=== PATIENT | male | born 1995 | race Caucasian/White ===

== ENCOUNTER 2019-07-25 15:02 | Emergency (ER) | payer OTHER ==
[2019-07-25 15:09] VITALS: BP 138/87; PULSE 72; TEMP 97.8; BMI 32.1
[2019-07-25] MEDS ORDERED: DIPHTH,PERTUSS(ACELL),TET 0.5 ML DISP.SYRIN IM ONE ×2 (15:29→15:33)
[2019-07-25] MEDS ORDERED: IBUPROFEN 600 MG TABLET (FP) PO ONE ×2 (16:44→16:50)
--- NOTE | 2019-07-25 16:49 | PDOC ---
History of Present Illness - General Chief Complaint: Injury Stated Complaint: INJURY Time Seen by Provider: 07/25/19 15:16 History Source: Patient Exam Limitations: No Limitations Past History - Travel Traveled outside of the country in the last 30 days: No Close contact w/someone who was outside of country & ill: No - Past Medical History Allergies/Adverse Reactions: Allergies Allergy/AdvReac Type Severity Reaction Status Date / Time No Known Allergies Allergy Verified 07/25/19 15:09 Home Medications: Ambulatory Orders Cephalexin Monohydrate [Keflex -] 500 mg PO BID #14 capsule 07/25/19 Ibuprofen 600 mg PO Q6H #30 tablet 07/25/19 Sulfamethoxazole/Trimethoprim [Bactrim Ds -] 1 tab PO BID #14 tablet 07/25/19 COPD: No - Immunization History Immunization Up to Date: No - Psycho Social/Smoking Cessation Hx Smoking History: Never smoked Review of Systems - Review of Systems Able to Perform ROS?: Yes Comments:: 07/25/19 16:56 CONSTITUTIONAL: Absent: fever, chills, diaphoresis, generalized weakness, malaise, loss of appetite MUSCULOSKELETAL: Absent: myalgia, arthralgia, joint swelling SKIN: Present: laceration Absent: rash, itching, pallor NEUROLOGIC: Absent: headache, focal weakness or paresthesias, dizziness, unsteady gait, seizure, mental status changes, bladder or bowel incontinence PSYCHIATRIC: Absent: anxiety, depression, suicidal or homicidal ideation, hallucinations. Is the patient limited [place] proficient: No *Physical Exam - Vital Signs Last Vital Signs Temp Pulse Resp BP Pulse Ox 97.8 F 72 18 138/87 99 07/25/19 15:04 07/25/19 15:04 07/25/19 15:04 07/25/19 15:04 07/25/19 15:04 - Physical Exam 07/25/19 16:58 GENERAL: The patient is awake, alert, and fully oriented, in no acute distress. HEAD: Normal with no signs of trauma. EYES: Pupils equal, round and reactive to light, extraocular movements intact, sclera anicteric, conjunctiva clear. EXTREMITIES: Normal range of motion, no edema. NEUROLOGICAL: Normal speech, normal gait. PSYCH: Normal mood, normal affect. SKIN: Distal nailbed laceration/avulsion laceration approximately 0.5 cm. Actively bleeding. PMS intact. Warm, Dry, normal turgor, no rashes or lesions noted. Procedures - Laceration/Wound Repair Left Distal 1st digit Wound Length: to 2.5 cm Wound Explored: clean, no foreign body present Wound's Depth, Shape: superficial, linear Irrigated w/ Saline: Yes Betadine Prep: No (alcohol prep) Anesthesia: 1% Lidocaine Amount of Anesthetic (ccs): 5 Wound Repaired With: Sutures Suture Size/Type: 4:0, proline Number of Sutures: 3 (simple interrupted through the L1st nail bed) Layer Closure: No Sterile Dressing Applied: Yes ED Treatment Course - RADIOLOGY Radiology Studies Ordered: Category Date Time Status HAND- LEFT [RAD] Stat Radiology 07/25/19 15:39 Taken - Medications Given in the ED: ED Medications Discontinued Medications Generic Name Dose Route Start Last Admin Trade Name Freq PRN Reason Stop Dose Admin Diphtheria/Tetanus/Acell Pertussis 0.5 ml 07/25/19 15:29 07/25/19 15:38 Boostrix - IM 07/25/19 15:30 0.5 ml .ONCE ONE Administration Medical Decision Making - Medical Decision Making 07/25/19 16:59 The patient is a 24-year-old male no past medical history who presents to the ER with a left finger nailbed laceration. He states he was at work chopping chicken when he cut the end of his finger off. He does not member the date of his last tetanus shot. He states that it was bleeding for more than 20-minute so he came to the ER for evaluation. He states he is able to move his finger. Denies numbness and tingling weakness the affected extremity. Pt is R hand dominant. A/P: Nailbed avulsion/laceration On exam the distal nailbed is missing of the left first finger. There is a visible nailbed laceration after tourniquet is placed for bleeding control. X-ray is negative for fractures Wound was cleaned under high pressure, bleeding continued. Digital block placed 3 simple interrupted sutures were placed with absorbable suture to help with bleeding control. Mild oozing present after sutures placed, given the avulsion injury. Bleeding well controlled. Nonstick dressing placed and patient told to follow-up in 2 days for wound check. Given open laceration, patient placed on antibiotics to prevent infection Discharge home I discussed the physical exam findings, ancillary test results and final diagnoses with the patient. I answered all of the patient's questions. The patient was satisfied with the care received and felt comfortable with the discharge plan and treatment plan. The Patient agrees to follow up with the primary care physician/specialist within 24-72 hours. Return precautions were given. Discharge - Discharge Information Problems reviewed: Yes Clinical Impression/Diagnosis: Avulsion, finger tip Qualifiers: Encounter type: initial encounter Qualified Code(s): S61.209A - Unspecified open wound of unspecified finger without damage to nail, initial encounter Condition: Stable Disposition: HOME - Admission No - Additional Discharge Information Prescriptions: Cephalexin Monohydrate [Keflex -] 500 mg PO BID #14 capsule Ibuprofen 600 mg PO Q6H #30 tablet Sulfamethoxazole/Trimethoprim [Bactrim Ds -] 1 tab PO BID #14 tablet - Follow up/Referral Referrals: Tamara Holloway MD [Primary Care Provider] - - Patient Discharge Instructions Patient Printed Discharge Instructions: DI for Laceration Repair -- Simple Additional Instructions: You were evaluated for your laceration today Please return in 2 days (07/27/19) for a wound check Take the antibiotics as directed. Your x-ray is negative for fracture. You may take Motrin 600mg every 6 hours as needed for pain not to exceed 3, 000mg a day The wound will continue to ooze. You can put pressure on the wound to help stop the bleeding. Return to the ER sooner for worsening pain, fever, purulent discharge or if you have any changes in your symptoms - Post Discharge Activity Work/Back to School Note: Back to Work
== END 2019-07-25 16:56 | disposition home or self-care (01) ==
LOC: JERFT 15:02
PROC: 3E0234Z Introduction of Serum, Toxoid and Vaccine into Muscle, Percutaneous Approach (ICD-10-PCS; principal; 2019-07-25)
PROC: 0HQGXZZ Repair Left Hand Skin, External Approach (ICD-10-PCS; 2019-07-25)
DX: S61.102A Unspecified open wound of left thumb with damage to nail, initial encounter (principal); W26.0XXA Contact with knife, initial encounter; Y93.G1 Activity, food preparation and clean up; Y92.512 Supermarket, store or market as the place of occurrence of the external cause; Y99.0 Civilian activity done for income or pay
CPT/HCPCS: 73130-TC-LT-FY; 90715; 99281-25

== ENCOUNTER 2019-07-27 10:29 | Emergency (ER) | payer OTHER ==
[2019-07-27 10:55] VITALS: BP 109/60; PULSE 65; TEMP 98.1; BMI 32.1
--- NOTE | 2019-07-27 12:10 | PDOC ---
Suture Removal/Wound Check HPI - History of Present Illness Chief Complaint: Wound Stated Complaint: FOLLOW UP VISIT (THUMB) Time Seen by Provider: 07/27/19 10:56 History Source: Yes: Patient Exam Limitations: Yes: No Limitations Treated at: [facility] ED - Previous ED Treatment Type of procedure performed on last visit: Yes: Laceration Repair Tetanus Immunization: Yes: Up to Date Past History - Travel Traveled outside of the country in the last 30 days: No Close contact w/someone who was outside of country & ill: No - Past Medical History Allergies/Adverse Reactions: Allergies Allergy/AdvReac Type Severity Reaction Status Date / Time No Known Allergies Allergy Verified 07/27/19 10:55 Home Medications: Ambulatory Orders Cephalexin Monohydrate [Keflex -] 500 mg PO BID #14 capsule 07/25/19 Ibuprofen 600 mg PO Q6H #30 tablet 07/25/19 Sulfamethoxazole/Trimethoprim [Bactrim Ds -] 1 tab PO BID #14 tablet 07/25/19 COPD: No - Immunization History Immunization Up to Date: No - Psycho Social/Smoking Cessation Hx Smoking History: Never smoked Suture Removal/Wound Check PE - Physical Exam Laceration/Wound Check Symptoms: reports: Improved. denies: Discharge, Bleeding Current Severity Level: None Maximum Severity Level: None Location of Laceration/Wound: left: Finger *Review of Systems - Review of Systems Able to Perform ROS?: Yes Constitutional: No: Fever, Weakness *Physical Exam - Vital Signs Last Vital Signs Temp Pulse Resp BP Pulse Ox 98.1 F 65 18 109/60 99 07/27/19 10:54 07/27/19 10:54 07/27/19 10:54 07/27/19 10:54 07/27/19 10:54 - Physical Exam General Appearance: Yes: Nourished, Appropriately Dressed. No: Apparent Distress Extremity: positive: Normal Capillary Refill Integumentary: positive: Normal Color, Dry, Warm, Other (healing avulsion of the L 1st digit, no active bleeding. No surrounding erythema. No purulent drainage.) Medical Decision Making - Medical Decision Making 07/27/19 12:08 The patient is a 24-year-old male who returns the ER for a wound check of his left first digit after having an avulsion injury 2 days ago. His fevers, purulent drainage. He is taking the antibiotics as prescribed A/P: Wound check On exam healing avulsion injury of the left thumb. No bleeding active at this time. No purulent drainage or evidence of cellulitis. Skin is starting to form. Sutures are intact. Advised patient if the sutures do not absorb to return to the ER to have them removed on Friday, 1 week after the initial injury Discharge home I discussed the physical exam findings, ancillary test results and final diagnoses with the patient. I answered all of the patient's questions. The patient was satisfied with the care received and felt comfortable with the discharge plan and treatment plan. The Patient agrees to follow up with the primary care physician/specialist within 24-72 hours. Return precautions were given. Discharge - Discharge Information Problems reviewed: Yes Clinical Impression/Diagnosis: Visit for wound check Condition: Stable Disposition: HOME - Admission No - Follow up/Referral Referrals: Rachid Camejo MD [Primary Care Provider] - - Patient Discharge Instructions Patient Printed Discharge Instructions: DI for Nail Avulsion Injury Additional Instructions: Your wound is healing well. Please continue to change the dressing every day. Take the antibiotics as previously directed. If the stitches do not absorb by Friday please return to the ER to have them removed Return to the ER for any new or worsening symptoms including fever, purulent drainage, redness around the thumb or if you have any changes in your symptoms - Post Discharge Activity Work/Back to School Note: Back to Work
== END 2019-07-27 12:16 | disposition home or self-care (01) ==
LOC: JERFT 10:29
DX: Z48.817 Encounter for surgical aftercare following surgery on the skin and subcutaneous tissue (principal)
CPT/HCPCS: 99281-25

== ENCOUNTER 2019-08-02 22:18 | Emergency (ER) | payer OTHER ==
[2019-08-02 22:29] VITALS: BP 122/68; PULSE 90; TEMP 98.3; BMI 30.7
--- NOTE | 2019-08-02 23:40 | PDOC ---
Suture Removal/Wound Check HPI - History of Present Illness Chief Complaint: Suture/Staple Removal(Here) Stated Complaint: STITCH REMOVAL Time Seen by Provider: 08/02/19 23:33 History Source: Yes: Patient, Old Records Exam Limitations: Yes: No Limitations Treated at: [facility] Date of Last ED visit: 07/25/19 - Previous ED Treatment Type of procedure performed on last visit: Yes: Laceration Repair Tetanus Immunization: Yes: Given at last ED visit Antibiotics Prescribed: Yes Past History - Past Medical History Allergies/Adverse Reactions: Allergies Allergy/AdvReac Type Severity Reaction Status Date / Time No Known Allergies Allergy Verified 08/02/19 22:26 Home Medications: Ambulatory Orders Cephalexin Monohydrate [Keflex -] 500 mg PO BID #14 capsule 07/25/19 Ibuprofen 600 mg PO Q6H #30 tablet 07/25/19 Sulfamethoxazole/Trimethoprim [Bactrim Ds -] 1 tab PO BID #14 tablet 07/25/19 COPD: No - Immunization History Immunization Up to Date: No - Psycho Social/Smoking Cessation Hx Smoking History: Never smoked Suture Removal/Wound Check PE - Physical Exam Laceration/Wound Check Symptoms: reports: None Current Severity Level: None Maximum Severity Level: None Pain Localization: None Location of Laceration/Wound: left: Finger (Thumb) Pain Radiation: None *Review of Systems - Review of Systems Able to Perform ROS?: Yes All Other Systems: Reviewed and Negative *Physical Exam - Vital Signs Last Vital Signs Temp Pulse Resp BP Pulse Ox 98.3 F 90 18 122/68 97 08/02/19 22:27 08/02/19 22:27 08/02/19 22:27 08/02/19 22:27 08/02/19 22:27 - Physical Exam General Appearance: Yes: Appropriately Dressed. No: Apparent Distress Extremity: positive: Other (Laceration well approximated. No signs and symptoms of infection noted. No discharge or drainage present. [address] Medical Decision Making - Medical Decision Making 08/02/19 23:56 A/P: 24-year-old male for suture removal to the left thumb No signs and symptoms of infection. Wound is well approximated and well-healed. 3 sutures removed without incident. Patient tolerated well Discharge home Discharge - Discharge Information Problems reviewed: Yes Clinical Impression/Diagnosis: Visit for suture removal Condition: Stable Disposition: HOME - Admission No - Follow up/Referral Referrals: Rachid Camejo MD [Primary Care Provider] - - Patient Discharge Instructions Patient Printed Discharge Instructions: DI for Suture Removal Additional Instructions: Rest, allow completion of healing May continue using bacitracin ointment until scabs are completely resolved Keep wound covered and out of the sun for at least one year as scar tissue will pear picker and absorbable more sunlight causing a darker discoloration May use vitamin E, aloe, or other oils recommended for skin and scar healing - Post Discharge Activity
--- NOTE | 2019-08-02 23:41 | PDOC ---
*Physical Exam - Vital Signs Last Vital Signs Temp Pulse Resp BP Pulse Ox 98.3 F 90 18 122/68 97 08/02/19 22:27 08/02/19 22:27 08/02/19 22:27 08/02/19 22:27 08/02/19 22:27 Medical Decision Making - Medical Decision Making 08/02/19 23:41 Patient seen by the advanced practice provider under my direct supervision. Ancillary testing reviewed as necessary. I agree with plan as outlined by the advanced practice provider. Discharge - Discharge Information Problems reviewed: Yes Clinical Impression/Diagnosis: Visit for suture removal Condition: Stable Disposition: HOME - Follow up/Referral Referrals: Rachid Camejo MD [Primary Care Provider] - - Patient Discharge Instructions Patient Printed Discharge Instructions: DI for Suture Removal Additional Instructions: Rest, allow completion of healing May continue using bacitracin ointment until scabs are completely resolved Keep wound covered and out of the sun for at least one year as scar tissue will ultrasound supervisor and absorbable more sunlight causing a darker discoloration May use vitamin E, aloe, or other oils recommended for skin and scar healing - Post Discharge Activity
== END 2019-08-03 00:24 | disposition home or self-care (01) ==
LOC: JER 22:18
DX: Z48.817 Encounter for surgical aftercare following surgery on the skin and subcutaneous tissue (principal); Z48.02 Encounter for removal of sutures
CPT/HCPCS: 99281-25

== ENCOUNTER 2022-05-28 19:22 | Emergency (ER) | payer OTHER ==
[2022-05-28 19:39] VITALS: BP 110/76; PULSE 70; RESP 17; TEMP 98.1; BMI 33.5
[2022-05-28] MEDS ORDERED: DIPHTH,PERTUSS(ACELL),TET 0.5 ML DISP.SYRIN IM ONE ×2 (20:31→20:49)
== END 2022-05-28 21:18 | disposition home or self-care (01) ==
LOC: JERFT 19:22
PROC: 0HQGXZZ Repair Left Hand Skin, External Approach (ICD-10-PCS; principal; 2022-05-28)
PROC: 3E0234Z Introduction of Serum, Toxoid and Vaccine into Muscle, Percutaneous Approach (ICD-10-PCS; 2022-05-28)
DX: S61.012A Laceration without foreign body of left thumb without damage to nail, initial encounter (principal); W26.0XXA Contact with knife, initial encounter
CPT/HCPCS: 12001; 90471; 90715; 99282-25

== ENCOUNTER 2022-06-15 15:24 | Emergency (ER) | payer OTHER ==
[2022-06-15 15:37] VITALS: BP 124/72; PULSE 85; RESP 16; TEMP 97.8; BMI 34.8
== END 2022-06-15 16:54 | disposition home or self-care (01) ==
LOC: JERFT 15:24
DX: Z48.02 Encounter for removal of sutures (principal)
CPT/HCPCS: 99281-25